=== PATIENT | male | born 1950 | race African-American/Black ===

== ENCOUNTER 2017-01-01 13:26 | Day surgery (SDC) | payer MEDICARE, OTHER ==
--- NOTE | ~2017-01-01 | OP ---
Record Of Operation [facility] [address] [place]. [address] NAME: STEPHANIE HUSTON : 50 STATUS : PRE [facility]#: [id number] AGE: 66 ADM/REG DATE : MR#: [id number] REPORT SERV DATE: 01/02/17 DICTATED BY: PHUC VALLEJO DATE: 01/01/17 REPORT STATUS : Draft TRANSCRIBED BY: MODL DATE: 01/01/17 DATE OF PROCEDURE: 01/01/2017 PREOPERATIVE DIAGNOSES: Ulceration over a right radiocephalic fistula. POSTOP DIAGNOSIS: Ulceration over a right radiocephalic fistula. PROCEDURE: Revision of right arm arteriovenous fistula with resection of ulcer and primary repair. SURGEON: Phuc Vallejo M.D. FELLOW: Ramiro. ANESTHESIA: Local with sedation. COMPLICATIONS: None. ESTIMATED BLOOD LOSS: 50 mL. HISTORY: The patient is a 66-year-old [facility] patient on dialysis level with a right brachiocephalic fistula. He has ulceration over the fistula. Due to concerns for possible bleeding, it was felt he would benefit from repeat revision of this area. This was discussed with the patient in detail. He expressed understanding and desired to proceed. PROCEDURE IN DETAIL: The patient was taken to the operating room and placed in supine position. He was given IV sedation without complication. The right arm was prepped and draped in sterile fashion. Tourniquet was placed in the upper arm and the patient was given 5000 units of heparin intravenously. After more than three minutes of heparinization, the tourniquet was inflated to 250 mmHg. An elliptical incision was created the over the fistula in the distal upper arm at the site of the ulcer excising the entire ulcer. The fistula was freed circumferentially from the skin and subcutaneous tissues with sharp dissection. Once freed, an anterior wedge was taken out of the fistula. The fistula was then closed with a running 5-0 Prolene suture. Upon completion of this, flow was restored to the fistula by deflating the tourniquet. There was a good thrill in the fistula. There was bleeding along the anastomosis which was controlled with additional 5-0 Prolene suture. Once hemostasis was assured, the wound was irrigated and the skin closed with multiple interrupted 3-0 Ethilon vertical mattress sutures. A sterile dressing applied. The patient tolerated the procedure out difficulty. MARISSA/ANDREA Phuc Vallejo M.D. Record Of Operation [address] [address] NAME: STEPHANIE HUSTON : 50 STATUS : [place] [facility]#: [id number] AGE: 66 ADM/REG DATE : MR#: [id number] REPORT SERV DATE: 01/02/17 DICTATED BY: PHUC VALLEJO DATE: 01/01/17 REPORT STATUS : Draft TRANSCRIBED BY: MODL DATE: 01/01/17 / [id number] CC: Phuc Vallejo M.D.
[2017-01-01 12:06] LABS: HEMATOCRIT 36.9 % (40.0-51.0); HEMOGLOBIN 11.9 g/dL (13.6-17.8)
[2017-01-01 12:17] LABS: CALCIUM, SERUM 9.1 MG/DL (8.5-10.4); CHLORIDE, SERUM 98 MMOL/L (96-112); CO2 (CARBON DIOXIDE) 25 MMOL/L (24-34); CREATININE 6.62 MG/DL (0.70-1.30); GFR AFRICAN AMERICAN 9 ML/MIN (>=60); GFR NON AFRICAN AMERICAN 8 ML/MIN (>=60); POTASSIUM, SERUM 4.4 MMOL/L (3.5-5.3); SODIUM, SERUM 137 MMOL/L (135-148)
[2017-01-01 12:19] LABS: BUN (BLOOD UREA NITROGEN) 92 MG/DL (6-23); GLUCOSE, SERUM 79 MG/DL (60-99)
[~2017-01-01 13:26] MED LIST: *UNABLE1; ALPHA LIPOIC50 M1 PO; AMB5 PO; AMIT50 PO; AMIT75 PO; AMITRIPTYLIN150 MG PO; ARTIFICIAL TEARS OPH; ASA5GR PO; ASAB PEG; ASAB PO; ASCRIPTIN PO; B COMPLEX-C PO; B1100 PEG; B1100 PO; B12100T PO; B150 PO; BEN25 PO; BION TEARS; BISR PR; BIST PO; C1 PO; C5 PO; CARTIA XT180 MG/24 PO; CENTRUM TAB1 TAB PO; CIP5 PO; CORDARONE PEG; CORDARONE PO; COREG12 PO; COREG25 PO; COUMADIN6 MG PO; COUMADIN7.5 MG PO; DCN100 PO; DIGITEK0.125 MG PO; DIOCTO50 MG/5 ML PO; DSS PEG; ENDOCET1 TA3 PO; ENEMA; EPOGEN2000 MG/ML IV; FEOSOLEL PO; FERROUS SULF325 M1 PEG; FISH-EPA1000 MG PO; FL250 TOP; FLEET MINERL PR; FLEXERIL5 MG PO; FLONASE NAS; FOLIC ACID800 MCG PEG; FOLIC ACID800 MCG PO; FORTAZ IV; GANIDIN NR100 MG/5 M PO; HEPA50006 SC; HUMALOGMIX SC; HUMULIN R1 ML SC; IMDUR30 PO; IRON325 MG PEG; ISOSORB DIN30 MG PO; JANTOVEN3 MG PO; JUVEN PACKET PO; L40 PO; L80 PO; LAN125 PO; LANTUS SC; LEVEMFLXPN SC; LEVEMIR SC; LEVOTHYROXIN25 MCG PEG; LEVOTHYROXIN25 MCG PO; LEXAPRO10 PO; LIDAMANTLE3 % TOP; LIDO5OINT TOP; LIQUID TEARS OPH; LOP25 PO; LYRICA50 PO; MIRALAX POWDER1 PKT PEG; MIRALAXPKT PEG; MOMUD PEG; MOMUD PO; MSCONTIN PO; MVI PO; NEPHRO PEG; NEPHRO PO; NEPHRO-VITE PEG; NEPHRO-VITE PO; NEUR100 PO; NEUR300 PO; NEXIUM40 MG PO; NITROBID2 % TOP; NITROSTAT0.4 MG SL; NORCO1 TAB PO; NORV5 PO; NOVOLOG SC; NOVOLOGMIX; NOVOLOGMIX SC; NOVOPEN SC; PACERONE100 MG PO; PACERONE200 MG PO; PCET PO; PERCOCET 10/3251 TAB PO; PERCOCET1 TA4 PEG; PERCOCET1 TA4 PO; PHOSLO PO; PLAVIX PEG; PLAVIX PO; PR12.5 PO; PR25 PEG; PR25 PO; PREV15 PO; PREV30 PO; PRILOSEC OTC20 MG PEG; PRILOSEC40 MG PEG; PRILOSEC40 MG PO; PRIN10 PO; PROAMAT5 PEG; PROAMAT5 PO; PROTONIX PO; REG5 PEG; REGL PEG; RENA-VITE PO; RENVELA800 MG PO; ROCALTROL0.25 MCG OR; ROCEPHIN2 G2 IV; SANTYL250 MG/GM TOP; SENTAB PEG; SENTAB PO; SODBICAR10 PO; STRESS B COMPLEX PO; SUPER B W/C PEG; SYN.025B PEG; SYN.025B PO; T PEG; T PO; TEARS NATURA OPH; THERAPEUTIC PO; TIAZA4 PO; TRAZODONE150 MG PEG; VIT B-SIX 50 MG50 MG PO; VIT D3; VITAMIN B-121000 MC1 SL; VITAMIN B-122500 MCG SL; VITC500 PEG; VITC500 PO; X5 PO; Z300 PO; ZESTRIL10 MG PO; ZESTRIL2.5 MG PO; ZESTRIL20 MG PO; ZINC PEG; ZOCOR40 PO; ZOFRAN8 PO; ZOLOFT25 MG PEG; [UNRECOGNIZED DRUG - OTHER] PEG; [UNRECOGNIZED DRUG - OTHER] PEG; [UNRECOGNIZED DRUG - OTHER] TOP
[2017-06-09] MEDS ORDERED: REFRESH OPH (12:05)
[2017-06-09] MEDS ORDERED: CORDARONE PEG (12:05)
[2017-06-09] MEDS ORDERED: ASAB PEG (12:05)
[2017-06-09] MEDS ORDERED: FOLIC ACID800 MCG PEG (12:06)
[2017-06-09] MEDS ORDERED: DSS PEG (12:06)
[2017-06-09] MEDS ORDERED: MIRALAX POWDER1 PKT PEG (12:07)
[2017-06-09] MEDS ORDERED: LEVEMFLXPN SC (12:08)
[2017-06-09] MEDS ORDERED: NOVOLOG SC ×3 (12:09→12:17)
[2017-06-09] MEDS ORDERED: SYN.025B PEG (12:09)
[2017-06-09] MEDS ORDERED: PRILOSEC40 MG PEG (12:11)
[2017-06-09] MEDS ORDERED: ENDOCET1 TA3 PEG ×2 (12:11→12:15)
[2017-06-09] MEDS ORDERED: TRAZ50 PEG (12:12)
[2017-06-09] MEDS ORDERED: ZOLOFT25 MG PEG (12:12)
[2017-06-09] MEDS ORDERED: TRIPHROCAPS PEG (12:12)
[2017-06-09] MEDS ORDERED: VITC500 PEG (12:13)
[2017-06-09] MEDS ORDERED: BISR PR (12:13)
[2017-06-09] MEDS ORDERED: MOMUD PEG (12:14)
[2017-06-09] MEDS ORDERED: [UNRECOGNIZED DRUG - OTHER] PO (12:15)
[2017-06-13] MEDS ORDERED: REFRESH OPH (09:30)
[2017-06-13] MEDS ORDERED: CORDARONE PEG (09:30)
[2017-06-13] MEDS ORDERED: FOLIC ACID800 MCG PEG (09:31)
[2017-06-13] MEDS ORDERED: DSS PEG (09:31)
[2017-06-13] MEDS ORDERED: MIRALAX POWDER1 PKT PEG (09:32)
[2017-06-13] MEDS ORDERED: LEVEMFLXPN SC (09:32)
[2017-06-13] MEDS ORDERED: SYN.025B PEG (09:32)
[2017-06-13] MEDS ORDERED: NOVOLOG SC ×3 (09:33→09:35)
[2017-06-13] MEDS ORDERED: PRILOSEC40 MG PEG (09:35)
[2017-06-13] MEDS ORDERED: ENDOCET1 TA3 PEG ×2 (09:35→09:39)
[2017-06-13] MEDS ORDERED: PR25 PEG (09:36)
[2017-06-13] MEDS ORDERED: ZOL50 PEG (09:36)
[2017-06-13] MEDS ORDERED: TRAZ50 PEG (09:36)
[2017-06-13] MEDS ORDERED: VITC500 PEG (09:37)
[2017-06-13] MEDS ORDERED: BISR PR (09:37)
[2017-06-13] MEDS ORDERED: TRIPHROCAPS PEG (09:37)
[2017-06-13] MEDS ORDERED: MOMUD PEG (09:38)
[2017-06-13] MEDS ORDERED: ORAJEL PO (09:39)
[2017-06-28] MEDS ORDERED: CORDARONE PO (13:47)
[2017-06-28] MEDS ORDERED: LIQUID TEARS OPH (13:48)
[2017-06-28] MEDS ORDERED: DSS PO (13:48)
[2017-06-28] MEDS ORDERED: FOLIC ACID400 MC1 PO (13:49)
[2017-06-28] MEDS ORDERED: HUMALOG SC (13:50)
[2017-06-28] MEDS ORDERED: LEVEMIR SC (13:51)
[2017-06-28] MEDS ORDERED: SYN.025B PO (13:51)
[2017-06-28] MEDS ORDERED: NOVOPEN SC (13:51)
[2017-06-28] MEDS ORDERED: PRILOSEC40 MG PO (13:53)
[2017-06-28] MEDS ORDERED: PERCOCET 10/3251 TAB PO ×2 (13:53→13:57)
[2017-06-28] MEDS ORDERED: PR25 PO (13:54)
[2017-06-28] MEDS ORDERED: MIRALAX POWDER1 PKT PO (13:54)
[2017-06-28] MEDS ORDERED: ZOL100 PO (13:55)
[2017-06-28] MEDS ORDERED: TRIPHROCAPS PO (13:55)
[2017-06-28] MEDS ORDERED: VITC500 PO (13:55)
[2017-06-28] MEDS ORDERED: TRAZODONE150 MG PO (13:55)
[2017-06-28] MEDS ORDERED: PROCTOCREAM PR (13:56)
[2017-06-28] MEDS ORDERED: [UNRECOGNIZED DRUG - OTHER] MT (13:58)
[2017-07-26] MEDS ORDERED: VIRT PO (11:23)
[2017-07-26] MEDS ORDERED: ZINC GLUCONATE PO (11:24)
[2017-07-26] MEDS ORDERED: BISR PR (11:25)
[2017-07-26] MEDS ORDERED: ENDOCET1 TA3 PO (11:26)
[2017-07-26] MEDS ORDERED: CLEOCIN300 MG PO (11:27)
[2017-07-26] MEDS ORDERED: [UNRECOGNIZED DRUG - OTHER] TOP (11:29)
== END 2017-01-01 23:59 | disposition home or self-care (01) ==
LOC: SDC 13:26
PROVIDERS: Surgery
PROC: 03WY07Z Revision of Autologous Tissue Substitute in Upper Artery, Open Approach (ICD-10-PCS; principal; 2017-01-01 12:15)
DX: T82.898A Other specified complication of vascular prosthetic devices, implants and grafts, initial encounter (principal); I12.0 Hypertensive chronic kidney disease with stage 5 chronic kidney disease or end stage renal disease; E11.22 Type 2 diabetes mellitus with diabetic chronic kidney disease; N18.6 End stage renal disease; I25.10 Atherosclerotic heart disease of native coronary artery without angina pectoris; I73.9 Peripheral vascular disease, unspecified; I48.91 Unspecified atrial fibrillation; Z88.1 Allergy status to other antibiotic agents; E03.9 Hypothyroidism, unspecified; F32.9 Major depressive disorder, single episode, unspecified; K21.9 Gastro-esophageal reflux disease without esophagitis; G47.33 Obstructive sleep apnea (adult) (pediatric); M19.90 Unspecified osteoarthritis, unspecified site; M10.9 Gout, unspecified; Z95.5 Presence of coronary angioplasty implant and graft; Z99.2 Dependence on renal dialysis; Z88.5 Allergy status to narcotic agent; Z90.49 Acquired absence of other specified parts of digestive tract; Z79.891 Long term (current) use of opiate analgesic; Z79.4 Long term (current) use of insulin; Z79.82 Long term (current) use of aspirin; Z79.02 Long term (current) use of antithrombotics/antiplatelets; Z79.899 Other long term (current) drug therapy; Z98.890 Other specified postprocedural states
CPT/HCPCS: 80048; 82962; 85014; 85018; 93005; G0257; J0690; J2250; J2720; J3010

== ENCOUNTER 2017-03-24 14:18 | Emergency (ER) | payer MEDICARE, OTHER ==
[2017-03-24 11:43] LABS: BASOPHILS 0.4 %; BASOPHILS ABSOLUTE 0.02 10/3/uL (0.0-0.16); EOSINOPHILS 4.7 %; EOSINOPHILS ABSOLUTE 0.22 10/3/uL (0.0-0.53); ER CBC TAT 0 Hrs 07 Mins; HEMATOCRIT 40.5 % (40.0-51.0); HEMOGLOBIN 13.3 g/dL (13.6-17.8); LYMPHOCYTES ABSOLUTE 1.26 10/3/uL (0.67-4.30); MEAN CORPUS HGB CONC 32.8 g/dL (32.0-36.0); MEAN CORPUSCULAR HEMOGLOB 31.7 pg (26.0-34.0); MONOCYTES 10.3 %; MONOCYTES ABSOLUTE 0.48 10/3/uL (0.21-1.20); NEUTROPHILS 57.6 %; NEUTROPHILS ABSOLUTE 2.69 10/3/uL (2.02-8.40); PLATELET COUNT 93 10/3/uL (150-400); WHITE BLOOD CELLS 4.7 10/3/uL (4.5-10.5)
[2017-03-24 11:45] LABS: MANUAL DIFF NO %; MEAN CORPUSCULAR VOLUME 96.4 fL (80-100)
[2017-03-24 11:53] LABS: INTERNATIONAL NORMAL RATI 1.1 UNITS (-); PARTIAL THROMBO TIME 33.7 SEC (22.5-37.2); PROTIME (NOT ORD) 13.8 SEC (12.0-14.5)
[2017-03-24 11:59] LABS: ALBUMIN 3.2 G/DL (3.5-5.0); CALCIUM, SERUM 8.7 MG/DL (8.5-10.4); CHEST PAIN PROFILE TAT 0 Hrs 23 Mins; CHLORIDE, SERUM 97 MMOL/L (96-112); DIRECT BILIRUBIN 0.1 MG/DL (0.0-0.4); INDIRECT BILIRUBIN(NOT ORDER) 0.2 MG/DL (0.1-0.9); POTASSIUM, SERUM 4.2 MMOL/L (3.5-5.3); SGOT(AST) 16 U/L (5-40); SGPT(ALT) 15 U/L (5-65); SODIUM, SERUM 134 MMOL/L (135-148); TOTAL BILIRUBIN 0.3 MG/DL (0-1.2); TOTAL PROTEIN 7.9 G/DL (6.0-8.5); TROPONIN I <0.02 NG/ML (<0.05)
[2017-03-24 12:00] LABS: ALKALINE PHOSPHATASE 126 U/L (45-117); BUN (BLOOD UREA NITROGEN) 44 MG/DL (6-23); CO2 (CARBON DIOXIDE) 31 MMOL/L (24-34); CREATININE 3.21 MG/DL (0.70-1.30); GFR AFRICAN AMERICAN 22 ML/MIN (>=60); GFR NON AFRICAN AMERICAN 19 ML/MIN (>=60); GLUCOSE, SERUM 110 MG/DL (60-99); LACTATE 1.4 MMOL/L (0.3-2.4)
[2017-06-09] MEDS ORDERED: ASAB PEG (12:05)
[2017-06-09] MEDS ORDERED: CORDARONE PEG (12:05)
[2017-06-09] MEDS ORDERED: REFRESH OPH (12:05)
[2017-06-09] MEDS ORDERED: DSS PEG (12:06)
[2017-06-09] MEDS ORDERED: FOLIC ACID800 MCG PEG (12:06)
[2017-06-09] MEDS ORDERED: MIRALAX POWDER1 PKT PEG (12:07)
[2017-06-09] MEDS ORDERED: LEVEMFLXPN SC (12:08)
[2017-06-09] MEDS ORDERED: NOVOLOG SC ×3 (12:09→12:17)
[2017-06-09] MEDS ORDERED: SYN.025B PEG (12:09)
[2017-06-09] MEDS ORDERED: ENDOCET1 TA3 PEG ×2 (12:11→12:15)
[2017-06-09] MEDS ORDERED: PRILOSEC40 MG PEG (12:11)
[2017-06-09] MEDS ORDERED: TRIPHROCAPS PEG (12:12)
[2017-06-09] MEDS ORDERED: TRAZ50 PEG (12:12)
[2017-06-09] MEDS ORDERED: ZOLOFT25 MG PEG (12:12)
[2017-06-09] MEDS ORDERED: BISR PR (12:13)
[2017-06-09] MEDS ORDERED: VITC500 PEG (12:13)
[2017-06-09] MEDS ORDERED: MOMUD PEG (12:14)
[2017-06-09] MEDS ORDERED: [UNRECOGNIZED DRUG - OTHER] PO (12:15)
[2017-06-13] MEDS ORDERED: REFRESH OPH (09:30)
[2017-06-13] MEDS ORDERED: CORDARONE PEG (09:30)
[2017-06-13] MEDS ORDERED: FOLIC ACID800 MCG PEG (09:31)
[2017-06-13] MEDS ORDERED: DSS PEG (09:31)
[2017-06-13] MEDS ORDERED: MIRALAX POWDER1 PKT PEG (09:32)
[2017-06-13] MEDS ORDERED: LEVEMFLXPN SC (09:32)
[2017-06-13] MEDS ORDERED: SYN.025B PEG (09:32)
[2017-06-13] MEDS ORDERED: NOVOLOG SC ×3 (09:33→09:35)
[2017-06-13] MEDS ORDERED: ENDOCET1 TA3 PEG ×2 (09:35→09:39)
[2017-06-13] MEDS ORDERED: PRILOSEC40 MG PEG (09:35)
[2017-06-13] MEDS ORDERED: PR25 PEG (09:36)
[2017-06-13] MEDS ORDERED: TRAZ50 PEG (09:36)
[2017-06-13] MEDS ORDERED: ZOL50 PEG (09:36)
[2017-06-13] MEDS ORDERED: BISR PR (09:37)
[2017-06-13] MEDS ORDERED: VITC500 PEG (09:37)
[2017-06-13] MEDS ORDERED: TRIPHROCAPS PEG (09:37)
[2017-06-13] MEDS ORDERED: MOMUD PEG (09:38)
[2017-06-13] MEDS ORDERED: ORAJEL PO (09:39)
[2017-06-28] MEDS ORDERED: CORDARONE PO (13:47)
[2017-06-28] MEDS ORDERED: DSS PO (13:48)
[2017-06-28] MEDS ORDERED: LIQUID TEARS OPH (13:48)
[2017-06-28] MEDS ORDERED: FOLIC ACID400 MC1 PO (13:49)
[2017-06-28] MEDS ORDERED: HUMALOG SC (13:50)
[2017-06-28] MEDS ORDERED: LEVEMIR SC (13:51)
[2017-06-28] MEDS ORDERED: SYN.025B PO (13:51)
[2017-06-28] MEDS ORDERED: NOVOPEN SC (13:51)
[2017-06-28] MEDS ORDERED: PERCOCET 10/3251 TAB PO ×2 (13:53→13:57)
[2017-06-28] MEDS ORDERED: PRILOSEC40 MG PO (13:53)
[2017-06-28] MEDS ORDERED: MIRALAX POWDER1 PKT PO (13:54)
[2017-06-28] MEDS ORDERED: PR25 PO (13:54)
[2017-06-28] MEDS ORDERED: ZOL100 PO (13:55)
[2017-06-28] MEDS ORDERED: TRAZODONE150 MG PO (13:55)
[2017-06-28] MEDS ORDERED: TRIPHROCAPS PO (13:55)
[2017-06-28] MEDS ORDERED: VITC500 PO (13:55)
[2017-06-28] MEDS ORDERED: PROCTOCREAM PR (13:56)
[2017-06-28] MEDS ORDERED: [UNRECOGNIZED DRUG - OTHER] MT (13:58)
[2017-07-26] MEDS ORDERED: VIRT PO (11:23)
[2017-07-26] MEDS ORDERED: ZINC GLUCONATE PO (11:24)
[2017-07-26] MEDS ORDERED: BISR PR (11:25)
[2017-07-26] MEDS ORDERED: ENDOCET1 TA3 PO (11:26)
[2017-07-26] MEDS ORDERED: CLEOCIN300 MG PO (11:27)
[2017-07-26] MEDS ORDERED: [UNRECOGNIZED DRUG - OTHER] TOP (11:29)
== END 2017-03-24 17:10 | disposition home or self-care (01) ==
LOC: ER 14:18
PROVIDERS: Emergency Medicine
DX: T82.838A Hemorrhage due to vascular prosthetic devices, implants and grafts, initial encounter (principal); I12.0 Hypertensive chronic kidney disease with stage 5 chronic kidney disease or end stage renal disease; N18.6 End stage renal disease; R10.84 Generalized abdominal pain; K56.41 Fecal impaction; E11.22 Type 2 diabetes mellitus with diabetic chronic kidney disease; D64.9 Anemia, unspecified; Z99.2 Dependence on renal dialysis; Z88.5 Allergy status to narcotic agent; Z88.1 Allergy status to other antibiotic agents; Z79.899 Other long term (current) drug therapy; Z79.82 Long term (current) use of aspirin; Z79.4 Long term (current) use of insulin
CPT/HCPCS: 71010; 74176; 80048; 80076; 83605; 83690; 83735; 84484; 85025; 85610; 85730; 93005; 93971; 99285